=== PATIENT | male | born 1935 | race Caucasian/White ===

== ENCOUNTER 2016-12-05 01:11 | Observation (INO) | payer MEDICARE, OTHER ==
--- NOTE | ~2016-12-05 | HP ---
History And Physical [address] [address] NAME: AXEL WEST : 35 STATUS : DIS Pierre PAT#: [id number] AGE: 81 ADM/REG DATE : 12/05/16 MR#: [id number] REPORT SERV DATE: 12/05/16 DICTATED BY: SALEEM DUMONT DATE: 12/05/16 REPORT STATUS : Draft TRANSCRIBED BY: MODDacia DATE: 12/05/16 DATE OF ADMISSION: 12/05/2016 CARDIOLOGY OBSERVATION ADMISSION INDICATION: Chest pain. HISTORY: The patient is an 81-year-old white male with multiple medical issues including complete heart block, previous pacemaker with recent generator placement 10/10/2015, coronary artery disease with three stents placed in 2015, obstructive sleep apnea, inflammatory bowel disease, COPD, and Lewy body dementia. His states that he had complained of some substernal discomfort and she gave him nitroglycerin without relief. EMS went out to the house and because of his symptoms, they felt he was best watched in observation. He has had no troponin elevations. He does not recall any chest pain, although this is reflective of his underlying dementia. He has had no PND or orthopnea. CURRENT HOME MEDICATIONS: Aspirin 81 a day, atorvastatin 40 at h.s., Alphagan ophthalmologic daily, cetirizine 10 per day, clonazepam 0.5 q.8 p.r.n., clopidogrel 75 a day, donepezil 5 q.a.m., Cosopt ophthalmologic both eyes b.i.d., omeprazole 40 a day, ferrous sulfate 325 a day, lisinopril 5 a day, mesalamine 400 per day, mirtazapine 15 at h.s., multivitamins daily, nitroglycerin p.r.n., omega-3 fatty acids daily, tamsulosin 0.4 at h.s., triamterene and hydrochlorothiazide 37.5/25 q.a.m., and Travatan ophthalmologic right eye daily. ALLERGIES OR INTOLERANCES: Morphine, ranitidine, and sulfa-containing antibiotics. SOCIAL HISTORY: He lives at home with his . He is an ex-tobacco smoker. He has a fair amount of hallucinations and tends to re-live his days while serving in the [employer]. FAMILY HISTORY: Negative for coronary artery disease at young age. PAST MEDICAL HISTORY/REVIEW OF SYSTEMS: See above. Additionally, he has hyperlipidemia. His last LVEF was 49%. Estimated 07/23/2015, he has only fair use of his CPAP for his obstructive sleep apnea. He is under the care of Neurology for his Lewy body dementia. PHYSICAL EXAMINATION: GENERAL: An 81-year-old white male. VITAL SIGNS: On arrival, blood pressure 88/56, pulse 82, and respirations 18. SKIN: No xanthelasmas. HEENT: Normocephalic. There is no pallor. Sclerae white. NECK: JVD is not elevated. CHEST: No crackles. CARDIAC: S1 normal, S2 is physiologic. ABDOMEN: Soft, albeit slightly protuberant. EXTREMITIES: Without edema. Pulses are +2 and symmetric. NEUROLOGIC: No focal deficits. History And Physical [address] [address] NAME: AXEL WEST : 35 STATUS : DIS Pierre PAT#: [id number] AGE: 81 ADM/REG DATE : 12/05/16 MR#: [id number] REPORT SERV DATE: 12/05/16 DICTATED BY: SALEEM DUMONT DATE: 12/05/16 REPORT STATUS : Draft TRANSCRIBED BY: MODL DATE: 12/05/16 LABORATORY DATA: BUN 12, creatinine 1.03, potassium 3.4. White count 8.8, hemoglobin 11.8. IMPRESSION: 1. Atypical chest pain. No evidence for acute repolarization changes. Recent normal stress exercise test. 2. Coronary artery disease. 3. Lewy body type dementia. 4. Gastroesophageal reflux disease. 5. Deconditioning. At this point, there is no indication for further testing. We will plan to return discharged home with home health. I suspect that as long as he is living at home and has recurrent of these atypical pains, he will continue to end up in the emergency room. It is difficult unfortunately to educate his family further. One other strategy may be palliative care. They have declined this in the past. SHERRY/WILLOW Saleem Dumont M.D. / [id number] CC: Miesha Madsen M.D. [facility]
[~2016-12-05 01:11] MED LIST: ALLEGRA180 PO; ARICEPT5 PO; ASAB PO; ASACOL PO; B12250T PO; CALTRA600D PO; COSOPT OPH; DELZICOL 400 M400 MG PO; FERRETTS325 MG PO; FERROUS SULF325 M1 PO; FISH OIL300 MG PO; FISH-EPA1000 MG PO; FLOMAX4 PO; ICAPS MV PO; IRON PO; KLONO5 PO; LIPITOR40 PO; MAX25 PO; MULTIPLE VIT PO; MULTIVITAMI1 PO; NEXIUM40 PO; NTG150 SL; PLAVIX PO; PRIN5 PO; REM15 PO; TRAVATAN OPH; TRAVATAN Z0.004 % OPH; ZYRTEC ALLGY10 MG PO; [UNRECOGNIZED DRUG - OTHER] PO
[2016-12-05 01:36] LABS: BASOPHILS 0.2 %; BASOPHILS ABSOLUTE 0.02 10/3/uL (0.0-0.16); EOSINOPHILS ABSOLUTE 0.18 10/3/uL (0.0-0.53); ER CBC TAT 0 Hrs 03 Mins; HEMATOCRIT 34.4 % (40.0-51.0); HEMOGLOBIN 11.8 g/dL (13.6-17.8); IMMATURE GRANULOCYTES 0.1 %; IMMATURE GRANULOCYTES ABSOLUTE 0.01 10/3/uL (0.0-0.11); LYMPHOCYTES 12.3 %; LYMPHOCYTES ABSOLUTE 1.09 10/3/uL (0.67-4.30); MANUAL DIFF NO %; MEAN CORPUS HGB CONC 34.3 g/dL (32.0-36.0); MEAN CORPUSCULAR HEMOGLOB 31.5 pg (26.0-34.0); MEAN CORPUSCULAR VOLUME 91.7 fL (80-100); MEAN PLATELET VOLUME 10.1 fL (9.2-13.0); MONOCYTES 8.8 %; MONOCYTES ABSOLUTE 0.78 10/3/uL (0.21-1.20); NEUTROPHILS 76.6 %; NEUTROPHILS ABSOLUTE 6.76 10/3/uL (2.02-8.40); PLATELET COUNT 191 10/3/uL (150-400); RBC DISTRIBUTION WIDTH 13.4 % (12.0-16.0); RED CELL COUNT 3.75 10/6/uL (4.7-6.1); WHITE BLOOD CELLS 8.8 10/3/uL (4.5-10.5)
[2016-12-05 01:44] LABS: INTERNATIONAL NORMAL RATI 1.1 UNITS (-); PARTIAL THROMBO TIME 25.2 SEC (22.5-37.2); PROTIME (NOT ORD) 13.7 SEC (12.0-14.5)
[2016-12-05 01:51] LABS: BUN (BLOOD UREA NITROGEN) 12 MG/DL (6-23); CALCIUM, SERUM 8.6 MG/DL (8.5-10.4); CHEST PAIN PROFILE TAT 0 Hrs 18 Mins; CHLORIDE, SERUM 99 MMOL/L (96-112); CO2 (CARBON DIOXIDE) 30 MMOL/L (24-34); CREATININE 1.03 MG/DL (0.70-1.30); GFR AFRICAN AMERICAN 79 ML/MIN (>=60); GFR NON AFRICAN AMERICAN 68 ML/MIN (>=60); GLUCOSE, SERUM 90 MG/DL (60-99); POTASSIUM, SERUM 3.8 MMOL/L (3.5-5.3); SODIUM, SERUM 134 MMOL/L (135-148); TROPONIN I <0.02 NG/ML (<0.05)
[2016-12-05 01:56] LABS: ASCORBIC ACID (UR NOT ORDER) NEG (NEG); BILIRUBIN, URINE NEGATIVE (NEG); ER URINALYSIS TAT 0 Hrs 24 Mins; KETONE, URINE NEGATIVE (NEG); LEUKOCYTE ESTERASE(NOT OR NEG (NEG); NITRITE (URINE) NEG (NEG); WBC (NOT ORDERED) (RFLEX) 1 (0-5)
[2016-12-05] MEDS ORDERED: ARICEPT5 PO (02:31)
[2016-12-05] MEDS ORDERED: PLAVIX PO (02:31)
[2016-12-05] MEDS ORDERED: NEXIUM40 PO (02:31)
[2016-12-05] MEDS ORDERED: FLOMAX4 PO (02:32)
[2016-12-05] MEDS ORDERED: DELZICOL 400 M400 MG PO (02:33)
[2016-12-05] MEDS ORDERED: LIPITOR40 PO (02:33)
[2016-12-05] MEDS ORDERED: MAX25 PO (02:33)
[2016-12-05] MEDS ORDERED: ASAB PO (02:34)
[2016-12-05] MEDS ORDERED: CENTRUM PO (02:34)
[2016-12-05] MEDS ORDERED: PRIN5 PO (02:34)
[2016-12-05] MEDS ORDERED: REM15 PO (02:34)
[2016-12-05] MEDS ORDERED: OCUVITE PO (02:34)
[2016-12-05] MEDS ORDERED: FISH OIL300 MG PO (02:35)
[2016-12-05] MEDS ORDERED: ZYRTEC ALLGY10 MG PO (02:35)
[2016-12-05] MEDS ORDERED: KLONO5 PO (02:36)
[2016-12-05] MEDS ORDERED: FERROUS SULF325 M1 PO (02:36)
[2016-12-05] MEDS ORDERED: COSOPT PO (02:38)
[2016-12-05] MEDS ORDERED: TRAVATAN Z 0.004% OPH (02:38)
[2016-12-05] MEDS ORDERED: ALPHAGAN P0.1 % OPH (02:38)
[2016-12-05] MEDS ORDERED: NITROSTAT0.4 MG SL (02:39)
[2016-12-05 09:56] LABS: PHOSPHORUS, SERUM 2.3 MG/DL (2.5-4.5); TROPONIN I <0.02 NG/ML (<0.05)
[2016-12-05] MEDS ORDERED: COREG3 PO (15:41)
[2016-12-05] MEDS ORDERED: DEMA10T (15:44)
[2016-12-05] MEDS ORDERED: K-TABS10 MEQ PO (15:48)
== END 2016-12-05 18:33 | disposition home health service (06) ==
LOC: ER 01:11 → 7NO 02:40
PROVIDERS: Emergency Medicine
DX: R07.89 Other chest pain (principal); I44.2 Atrioventricular block, complete; I25.10 Atherosclerotic heart disease of native coronary artery without angina pectoris; G47.33 Obstructive sleep apnea (adult) (pediatric); K21.9 Gastro-esophageal reflux disease without esophagitis; D64.9 Anemia, unspecified; G31.83 Neurocognitive disorder with Lewy bodies; N40.0 Benign prostatic hyperplasia without lower urinary tract symptoms; J44.9 Chronic obstructive pulmonary disease, unspecified; I50.22 Chronic systolic (congestive) heart failure; G30.9 Alzheimer's disease, unspecified; E78.5 Hyperlipidemia, unspecified; Z87.891 Personal history of nicotine dependence; Z88.5 Allergy status to narcotic agent; Z88.8 Allergy status to other drugs, medicaments and biological substances; Z79.82 Long term (current) use of aspirin; Z99.81 Dependence on supplemental oxygen; Z79.899 Other long term (current) drug therapy; Z79.02 Long term (current) use of antithrombotics/antiplatelets; Z95.0 Presence of cardiac pacemaker; Z88.2 Allergy status to sulfonamides; Z88.1 Allergy status to other antibiotic agents
CPT/HCPCS: 71010; 80048; 81001; 83735; 84100; 84484; 85025; 85610; 85730; 93005; 94640; 97162-GP; 99285; A9270-GY; G0378; G8978-CK-GP; G8979-CJ-GP